=== PATIENT | female | born 1965 | race Caucasian/White ===

== ENCOUNTER 2017-08-02 09:33 | Inpatient (IN) | payer OTHER ==
[~2017-08-02 09:33] MED LIST: Buffered Lidocaine 0.9% SYRIN* 5 ML/SYR SYRINGE INTRADERM ONE; Famotidine TAB* 20 MG PO ONE; Metoclopramide TAB* 10 MG PO ONE; Scopolamine 1.5 mg* PATCH TRANSDERM ONE
[2017-08-02] MEDS ORDERED: Scopolamine 1.5 mg* PATCH ONE (09:39)
[2017-08-02] MEDS ORDERED: Heparin VIAL(*) 5000 UNITS/ML VIAL (FIVE THOUSAND) ONE (09:39)
[2017-08-02] MEDS ORDERED: Metoclopramide TAB* 10 MG ONE (09:39)
[2017-08-02] MEDS ORDERED: Famotidine TAB* 20 MG ONE (09:39)
[2017-08-02] MEDS ORDERED: ceFAZolin 2 GM PREMIX (*) 2 GM/50 ML BAG IVPB ONE (09:40)
[2017-08-02] MEDS ORDERED: Buffered Lidocaine 0.9% SYRIN* 5 ML/SYR SYRINGE ONE (09:40)
[2017-08-02] MEDS ORDERED: ceFAZolin 1 GM ADVAN(*) 1 GM ADDV.VIAL IVPB ONE (09:40)
[2017-08-02] MEDS ORDERED: Clindamycin 900 MG IVPREMIX(* 900 MG/50 ML SDV IV ONE (09:40)
[2017-08-02] MEDS ORDERED: Bupivacaine 0.25% SDV* 30 ML ONE (13:44)
[2017-08-02] MEDS ORDERED: Methylene Blue 0.5 %* 50 MG/10 ML AMP IV ONE (13:51)
[2017-08-02] MEDS ORDERED: Atracurium* 10 MG/ML 10 ML VIAL ONE (13:59)
[2017-08-02] MEDS ORDERED: Lidocaine 2% PF * 5 ML VIAL ONE (13:59)
[2017-08-02] MEDS ORDERED: fentaNYL* 50 MCG/ML 2 ML VIAL (100 MCG VIAL) ONE ×3 (13:59→18:14)
[2017-08-02] MEDS ORDERED: Dexamethasone IV* 4 MG/ML 1 ML (4 MG) ONE (14:47)
[2017-08-02] MEDS ORDERED: Propofol* 10 MG/ML 20 ML BTL IV PUSH ONE (14:47)
[2017-08-02] MEDS ORDERED: EPHEDrine (Pressors)* 50 MG/ML VIAL ONE (14:54)
[2017-08-02] MEDS ORDERED: Ketorolac INJ* 30 MG/ML 1 ML VIAL IV PRN (15:18)
[2017-08-02] MEDS ORDERED: DiMENhydriNATE IV* 50 MG/ML VIAL IV PUSH PRN (15:18)
[2017-08-02] MEDS ORDERED: Atropine 1MG/ML INJ* 1 ML VIAL ONE (15:33)
[2017-08-02] MEDS ORDERED: Ondansetron INJ* 2 MG/ML VIAL IV PRN (16:15)
[2017-08-02] MEDS ORDERED: Ketorolac INJ* 30 MG/ML 1 ML VIAL ONE (16:15)
[2017-08-02] MEDS: fentaNYL* 50 MCG/ML 2 ML VIAL (100 MCG VIAL) IV PRN ×4 (16:17→18:25)
--- NOTE | 2017-08-02 16:23 | PN ---
Progress Note - Progress Note Date of Service: 08/02/17 Note: Brief Operative Note: Pre-op: Morbid obesity Post-op: Same Procedure: Laparoscopic Jerel-en-Y gastric bypass Surgeon: Dr. Horton [employer] Machine Operator: Martha Lozano Anaesthesia: GETA EBL: Minimal Fluids: LR 1000 cc Drains: None Catheter: Chakraborty to gravity Specimen: None Findings: See dictated op note
[2017-08-02] MEDS ORDERED: HYDROmorphone INJ* 1 MG/ML CARPUJECT SYRINGE ONE (16:30)
[2017-08-02] MEDS: HYDROmorphone INJ* 1 MG/ML CARPUJECT SYRINGE IV PRN ×5 (16:33→17:18)
[2017-08-02] MEDS: HYDROmorphone INJ* 2 MG/ML CARPUJECT SYRINGE IV PRN ×2 (20:02→23:49)
[2017-08-02] MEDS: Pantoprazole IV* 40 MG IV SCH (20:05)
[2017-08-02] MEDS: Ketorolac INJ* 30 MG/ML 1 ML VIAL IV PRN (22:40)
[2017-08-03] MEDS: HYDROmorphone INJ* 2 MG/ML CARPUJECT SYRINGE IV PRN (03:46)
[2017-08-03] MEDS: Heparin VIAL(*) 5000 UNITS/ML VIAL (FIVE THOUSAND) SUBCUT SCH ×3 (05:53→21:53)
--- NOTE | 2017-08-03 06:14 | OP ---
CC: [facility]; Margarito Boyle MD * DATE OF OPERATION: 08/02/17 - ROOM #352 DATE OF : 65 SURGEON: Eren Horton MD SYSTEMS PROJECT MANAGER: CHRIS Paredes ANESTHESIOLOGIST: Tanmay Coon MD ANESTHESIA: General endotracheal. PRE-OPERATIVE DIAGNOSIS: Clinically severe obesity. POST-OPERATIVE DIAGNOSIS: Clinically severe obesity. OPERATIVE PROCEDURE: Laparoscopic Jerel-en-Y gastric bypass. ESTIMATED BLOOD LOSS: Less than 50 mL. IV FLUIDS: 1 L of crystalloid. SPECIMEN: None. DRAINS: None. COMPLICATIONS: None. COUNTS: Instrument, needle and sponge counts were correct. DESCRIPTION OF PROCEDURE: The patient was brought to the operative room and placed on the table supine. Sequential compression devices were placed on both lower extremities. General anesthesia was administered. Chakraborty catheter was placed. She was positioned and padded appropriately. She received appropriate intravenous antibiotics. Her abdomen was prepped and draped in usual sterile fashion and time- out was performed. Local anesthetic was infiltrated into the skin and soft tissue prior to making each incision. Entry into the abdomen was through a left upper quadrant incision accommodating a 5 mm optical trocar. After accessing the peritoneal cavity, carbon dioxide was insufflated to a pressure of 15 mmHg. Under direct visualization, addition of 12 mm bladeless trocar is in the supraumbilical region in the right upper quadrant were placed. A 5-mm bladeless trocars were placed in the right upper quadrant medially and left upper quadrant laterally. A Natty liver retractor was placed percutaneously in the subxiphoid position and utilized to elevate the left lobe of the liver. The gastric anatomy appeared normal. The cardia and the stomach was mobilized away from the left gurwinder of the diaphragm using blunt dissection. Next, a perigastric dissection was undertaken on the lesser curvature and with several firings of the EndoGIA stapler with castelan cartridges, a gastric pouch was created, approximating 15 to 30 mL volume. Gastric staple lines were noted to be intact and hemostatic. Next, the omentum was retracted superiorly and the omentum was split down the midline with LigaSure. The transverse colon was retracted superiorly and the ligament of Treitz was identified. The jejunum was then measured out for 40 to 50 cm and at this point a series of 2-0 silk sutures were placed to tack the loop of jejunum to the left lateral staple line on the gastric pouch. Then the gastrojejunal ostomy was performed antecolic antegastric with a linear 30 mm castelan ADIEL stapler. The common gastroenterotomy was closed with 3- 0 PDS running. The loop of jejunum was then divided to the left of the anastomosis to complete the anastomosis. The anastomosis was then tested with methylene blue dye solution instilled through a 34-Spanish orogastric tube. No leak was identified. The tubing was withdrawn. The Jerel limb was measured out for 75 cm and a functional end-to-side jejunojejunostomy was created with a 60 mm castelan cartridge. Common enterotomy was run close with 3- 0 PDS. An anti-obstruction sutures of 3-0 silk were placed proximally and distally to the anastomosis. The mesenteric defect was closed with 3-0 silk in running fashion. Hemostasis was assured. Natty liver retractor was removed. Carbon dioxide was released and ports were removed under direct visualization. Incisions were closed with kathleen and dressings were applied. The patient tolerated this procedure well, was extubated and transferred to recovery room in stable condition. [id number]/[facility] #: [id number] [facility]DA HOSPITALJosé
[2017-08-03] MEDS: Ketorolac INJ* 30 MG/ML 1 ML VIAL IV PRN ×2 (07:34→16:05)
[2017-08-03] MEDS ORDERED: Acetaminophen ADULT LIQ* 650 MG/20.3 ML UDC PO PRN (08:59)
--- NOTE | 2017-08-03 09:06 | SURGPN ---
Subjective - Introduction -: Admitted on: 08/02/17 Patient's surgical date: 08/02/17 Procedure completed: Laparoscopic Jerel-en-Y gastric bypass - Medications -: Active Medications Generic Name Dose Route Start Last Admin Trade Name Freq PRN Reason Stop Dose Admin Acetaminophen 650 mg 08/03/17 08:59 Tylenol Adult Liq* PO Q6H PRN PAIN Hydrocodone Bitart/Acetaminophen 15 ml 08/03/17 08:59 Nortab 7.5/325 Liq* PO Q6H PRN PAIN Heparin Sodium (Porcine) 5,000 units 08/03/17 06:00 08/03/17 05:53 Heparin Vial(*) SUBCUT 5,000 units Q8HR JUDY Administration Hydromorphone HCl 0.5 mg 08/02/17 16:15 08/03/17 03:46 Dilaudid Inj* IV 0.5 mg Q3H PRN Administration PAIN Potassium Chloride/Dextrose 1,000 mls @ 125 mls/hr 08/03/17 16:16 D5w 1/2 Ns Kcl 20 Meq 1000 Ml* IV PER RATE JUDY Lactated Ringer's 1,000 mls @ 150 mls/hr 08/02/17 17:00 08/03/17 02:28 Lactated Ringers 1000 Ml Bag* IV 08/03/17 16:16 150 mls/hr PER RATE JUDY Administration Ketorolac Tromethamine 30 mg 08/02/17 16:15 08/03/17 07:34 Toradol Inj* IV 08/04/17 16:17 30 mg Q6H PRN Administration PAIN Ondansetron HCl 4 mg 08/02/17 16:15 Zofran Inj* IV Q6H PRN NAUSEA/VOMITING Pantoprazole Sodium 40 mg 08/02/17 17:00 08/02/17 20:05 Protonix Iv* IV 40 mg Q24H JUDY Administration Pharmacy Profile Note 1 note 08/05/17 06:00 Scopolamine Patch Remove* PATCH OFF 08/05/17 06:01 ONCE ONE - Comments Comments: Patient seen and examined at bedside. Reports doing well, mild incisional discomfort. Denies nausea or vomiting. Ambulatory down the [facility]. Denies any complaints. Objective - Objective -: Awake and alert, comfortable in bed, in NAD - Intake and Output -: Intake & Output 12/0408/02/17 08/03/17 08/04/17 06:59 06:59 06:59 06:59 Intake Total 2580 Output Total 575 Balance 2004 Weight 271 lb Intake: IV Fluids 2580 LR 2580 Oral 0 Output: Sainz 575 Estimated Blood Loss 0 Surgical Physical Exam - Comments -: Vitals reviewed, Tmax 98.8, no tachycardia Lungs CTA bilat. Heart RRR, no murmurs Abdomen soft, NT, ND. Incisions C/D/I. No guarding, rigidity or rebound noted. Ext. without edema Sainz with clear urine, I/Os reviewed. Assessment and Plan - Assessment -: POD#1, s/p laparoscopic Jerel-en-Y gastric bypass, doing well - Plan Additional Comments: D/C sainz catheter Start bariatric clear liquids Ambulate as tolerated Home in AM 08/04
[2017-08-03] MEDS: HYDROcodone/ACET. 7.5/325 LIQ* 15 ML UDC PO PRN ×2 (11:10→19:22)
[2017-08-03] MEDS: D5W 1/2 NS KCl 20 Meq 1000 ML* 1,000 ML IV SCH (16:27)
[2017-08-03] MEDS: Pantoprazole IV* 40 MG IV SCH (17:17)
[2017-08-04] MEDS: D5W 1/2 NS KCl 20 Meq 1000 ML* 1,000 ML IV SCH (00:28)
[2017-08-04] MEDS: HYDROcodone/ACET. 7.5/325 LIQ* 15 ML UDC PO PRN ×2 (03:17→09:33)
[2017-08-04] MEDS: Heparin VIAL(*) 5000 UNITS/ML VIAL (FIVE THOUSAND) SUBCUT SCH (05:52)
[2017-08-04 07:37] VITALS: BP 129/72
--- NOTE | 2017-08-04 09:45 | PN ---
Progress Note - Progress Note Date of Service: 08/04/17 Note: Surgery Progress (see full Discharge Summary): Doing well. Seen by Dr. Horton this a.m. Home today. Instructions reviewed.
--- NOTE | 2017-08-04 15:58 | DS ---
CC: [place] * DATE OF ADMISSION: 08/02/2017. DATE OF DISCHARGE: 08/04/2017. ATTENDING SURGEON: Dr. Eren Horton * (CHRIS Dixon dictating). HOSPITAL COURSE: Please refer to admission history and physical for admission details. The patient was taken to the operating room on 08/02/2017 at which time she underwent laparoscopic Jerel-en-Y gastric bypass with Dr. Horton. She has done well postoperatively with gradual improvement in pain and tolerance of bariatric clear liquids. She was seen the morning of discharge by Dr. Horton. PHYSICAL EXAMINATION: General: No acute distress. Temperature 97.5, blood pressure 129/72, pulse 60, respirations 18 to 28, room air saturation 97 percent. Heart: Regular rate and rhythm. Lungs: Clear to auscultation. Abdomen: Laparoscopic incision site is healing well with kathleen intact. No evidence of wound infection. Abdomen: Soft, nontender, other than expected tenderness at incision sites. IMPRESSION: Status post laparoscopic Jerel-en-Y gastric bypass. PLAN: Home today. Instructions were reviewed regarding wound care, diet and activity. She will use Omeprazole 20 mg one capsule opened and poured into liquid once daily in lieu of her usual S Omeprazole. We talked about pain control. She has a follow-up appointment at the [facility] with Dr. Horton next week. CHRIS DIXON [id number]/[facility] #: [id number] [facility]
[2017-08-05] MEDS ORDERED: Scopolamine PATCH Remove* 1 NOTE MISC PATCH OFF ONE (06:00)
== END 2017-08-04 10:20 | disposition home or self-care (01) | DRG 403 ==
LOC: AA 09:33 → SSU 19:34
PROVIDERS: ADMIT Surgery; ATTEND Surgery
PROC: 0D164ZA Bypass Stomach to Jejunum, Percutaneous Endoscopic Approach (ICD-10-PCS; principal; 2017-08-02 12:15)
DX: E66.01 Morbid (severe) obesity due to excess calories (principal); M48.02 Spinal stenosis, cervical region; Z68.42 Body mass index [BMI] 45.0-49.9, adult; I10 Essential (primary) hypertension; E78.5 Hyperlipidemia, unspecified; F41.9 Anxiety disorder, unspecified; K21.9 Gastro-esophageal reflux disease without esophagitis; M19.90 Unspecified osteoarthritis, unspecified site; Z96.653 Presence of artificial knee joint, bilateral; Z80.42 Family history of malignant neoplasm of prostate; Z87.891 Personal history of nicotine dependence; Z82.49 Family history of ischemic heart disease and other diseases of the circulatory system; Z82.61 Family history of arthritis
CPT/HCPCS: 43644; 81025; 94760; A9270-GY; C1776; J0461; J0690; J1100; J1170; J1644; J1885; J2704; J3010